=== PATIENT | male | born 1980 | race Caucasian/White ===

== ENCOUNTER 2024-11-18 08:16 | Observation (INO) | payer BC ==
[~2024-11-18] VITALS: Ht 172.7 cm; Wt 68.0 kg
[2024-11-18] VITALS (12 sets, daily range): BP systolic 114–133; BP diastolic 66–98
[~2024-11-18 08:16] MED LIST: ALBU90OI INH; CODGUAEL PO; ONDA4ODT MM; Zithromax250 MG PO; Zofran Odt4 MG SL
[2024-11-18 09:22] LABS: BASOPHILS ABSOLUTE AUTO 0.06 K/mm3 (0.00-0.23); BASOPHILS PERCENT AUTO 1 % (0-2); EOSINOPHILS ABSOLUTE AUTO 0.04 K/mm3 (0.00-0.68); EOSINOPHILS PERCENT AUTO 1 % (0-6); Hematocrit 39.7 % (37.0-53.0); Hemoglobin 14.2 g/dL (13.5-17.5); IMMATURE GRAN ABSOLUTE AUTO 0.03 K/mm3 (0.00-0.10); IMMATURE GRAN PERCENT AUTO 0 % (0-1); LYMPHOCYTES ABSOLUTE AUTO 1.58 K/mm3 (0.84-5.20); LYMPHOCYTES PERCENT AUTO 19 % (21-46); MONOCYTES ABSOLUTE AUTO 0.54 K/mm3 (0.16-1.47); MONOCYTES PERCENT AUTO 7 % (4-13); Mean Corpuscular HGB 30.6 pg (26.0-34.0); Mean Corpuscular HGB Conc 35.8 g/dL (31.5-36.5); Mean Corpuscular Volume 86 fL (80-100); NEUTROPHILS ABSOLUTE AUTO 6.11 K/mm3 (1.96-9.15); NEUTROPHILS PERCENT AUTO 73 % (41-73); Platelet Count 248 K/mm3 (150-400); RDW Coefficient Variation 12.4 % (11.7-14.2); RDW Standard Deviation 38.1 fL (35.1-46.3); Red Blood Cell Count 4.64 M/mm3 (4.30-5.90); White Blood Cell Count 8.36 K/mm3 (4.00-11.30)
[2024-11-18 09:34] LABS: Albumin, Blood 4.1 g/dL (3.4-5.0); Albumin/Globulin Ratio 1.2 (0.8-1.8); Bilirubin, Total 0.4 mg/dL (0.1-1.0); Bun/Creatinine Ratio 21.8 (12.0-20.0); Calcium, Blood 8.4 mg/dL (8.5-10.1); Creatinine, Blood 1.01 mg/dL (0.60-1.20); Globulin, Blood 3.4 g/dL (2.2-4.0); Potassium, Blood 3.8 mmol/L (3.5-5.5); Total Protein, Blood 7.5 g/dL (6.4-8.2)
[2024-11-18] MEDS ORDERED: ARIPIPRAZOLE15 M3 PO (10:13)
[2024-11-18] MEDS ORDERED: ARIPIPRAZOLE10 M4 PO (13:24)
[2024-11-18] MEDS ORDERED: FLUO10 PO (13:24)
[2024-11-18] MEDS ORDERED: TERB250 PO (13:24)
[2024-11-18] MEDS ORDERED: Lactated Ringer's 1,000 ML IV SCH ×2 (13:30→14:20)
[2024-11-18] MEDS ORDERED: Dexamethasone Sod Phos 10 MG/ML 1ML VIAL ONE (14:05)
[2024-11-18] MEDS ORDERED: Ondansetron HCl 2 MG / ML 2ML Vial ONE ×2 (14:05→16:18)
[2024-11-18] MEDS ORDERED: propofoL 20 ML IV ONE (14:05)
[2024-11-18] MEDS ORDERED: Rocuronium Bromide 10 MG/ML 5ML Injection IV ONE (14:05)
[2024-11-18] MEDS ORDERED: Sugammadex Sodium 200 MG/2ML SDV (100 MG/ML) ONE (14:06)
[2024-11-18] MEDS ORDERED: FentaNYL Citrate 50 MCG/ML 5 ML Injection ONE (14:07)
--- NOTE | 2024-11-18 14:15 | NUR ---
History, Chart, Medications and Allergies reviewed before start of procedure. Pre-Op teaching done. Pt verbalizes understanding. Patient confirms NPO status and agrees with scheduled surgery. Surgical site prepped with 2% Chlorhexidine cloth wipe.
[2024-11-18] MEDS ORDERED: FentaNYL Citrate 50 MCG/ML 2 ML Injection IV PRN (14:20)
[2024-11-18] MEDS ORDERED: FLU VACC TS2024-25(6MOS UP)/PF 45 MCG/0.5 ML SYRINGE IM SCH (14:20)
[2024-11-18] MEDS ORDERED: Ondansetron HCl 2 MG / ML 2ML Vial IV PRN (14:20)
[2024-11-18] MEDS ORDERED: CeFAZolin Sodium 2,000 MG in NS 100 ML IV SCH (14:25)
[2024-11-18] MEDS ORDERED: Bupivacaine 0.5% HCl 5 MG/ML 30MLVIAL ONE (14:25)
[2024-11-18] MEDS ORDERED: HYDROcodone 5-APAP 325 TAB PO PRN (14:30)
--- NOTE | 2024-11-18 15:42 | NUR ---
11/18/24 1542 Rosalind Pham 5ML ISOVUE USED BY SURGEON
--- NOTE | 2024-11-18 18:23 | NUR ---
POST OP:REPORT RECEIVED FROM SENIOR ACTUARIAL ANALYST. PT TO UNIT AT 1650. A/O, VSS. SURGICAL SITES WNL. PT ABLE TO TAKE SIPS OF WATER. DENIES N/V. REPORTS PAIN MANAGABLE. INSTRUCTED TO USE CALL LIGHT FOR 1ST TIME OOB
--- NOTE | 2024-11-18 20:15 | NUR ---
DISCHARGE SUMMARY PT D/C HOME TODAY AT 2014 WITH SPOUSE VIA IND AMBULATION OFF UNIT TO PRIVATE AUTO WITH DRILL PRESS SET UP OPERATOR SBA. DC INSTRUCTIONS AND PERSONAL BELONGINGS PROVIDED. PT REPORTS AKIL PO INTAKE, DENIES N/V. IS VOIDING AND AMBULATING IND IN HALLWAYS/ ROOM. PAIN MANAGED PER EMAR. IV CATH X 2 REMOVED WITH TIP INTACT. LAP SITES CDI, NO DRAINAGE NOTED WITH STERI STRIPS IN PLACE. DC INSTRUCTIONS AND PERSONAL BELONGINGS PROVIDED, BOTH VERBALIZED UNDERSTANDING AND DECLINE NEEDS OR QUESTIONS.
[2024-11-19] MEDS ORDERED: FLUoxetine HCl 10 MG Cap PO SCH (09:00)
[2024-11-19] MEDS ORDERED: ARIPiprazole 5 MG Tab PO SCH (09:00)
== END 2024-11-18 20:15 | disposition home or self-care (01) ==
LOC: ER 08:16 → ERHOLD 08:17 → SURS 17:03
PROVIDERS: Physician Assistant; ADMIT Surgery
PROC: 0FT44ZZ Resection of Gallbladder, Percutaneous Endoscopic Approach (ICD-10-PCS; principal; 2024-11-18 14:30)
DX: K81.0 Acute cholecystitis (principal); F31.9 Bipolar disorder, unspecified; Z79.899 Other long term (current) drug therapy
CPT/HCPCS: 74300; 76705; 80053; 83690; 85025; 88304; 93005; 93010; 99285-25; A9270; C1729; J1100; J2405; J2704; J3010; J7120